=== PATIENT | female | born 1960 | race Caucasian/White ===

== ENCOUNTER → 2018-03-19 08:41 | Outpatient (CLI) | payer OTHER, SELFPAY ==
--- NOTE | 2018-03-19 08:43 | US_ITS ---
STUDY: ABDOMINAL ULTRASOUND - RIGHT UPPER QUADRANT REASON FOR VISIT: Female, 57 years old. Gallbladder polyp TECHNIQUE: Ultrasound evaluation of the right upper quadrant was performed with real-time and static gomez-scale imaging. TECHNICAL QUALITY: Adequate. COMPARISON: 01/22/16. FINDINGS: Liver: The liver measures 13.7 cm. There is normal echogenicity of the liver. The bile ducts are within normal limits. There is hepatic color flow. The direction of portal flow is hepatopetal. There is no demonstrated mass lesion. Gallbladder: Normal distended gallbladder. The gallbladder wall measures 2.4 mm. There is a negative sonographic Greenwood's sign. There is no pericholecystic fluid. There are no gallstones. Stable 3 mm gallbladder polyp. Common Bile Duct (C.B.D.): The common bile duct measures 3.4 mm. Pancreas: Normal size of the head, body and tail of the pancreas. There is normal echogenicity of the pancreas. There is no demonstrated pancreatic mass or cyst. Right Kidney: Normal size of the right kidney. The right kidney measures 10.2 cm. Normal renal cortex. The right cortex measures 1.3 cm. There is no demonstrated renal mass or cyst. There is no right hydronephrosis. US/Abdomen Limited IMPRESSION: Stable gallbladder polyp. Otherwise negative. Electronically Signed: Papi Engle MD at 13:08 EDT , Service support ,
== END ==
PROVIDERS: Family Provider Family Medicine; PCP Family Medicine; Visit Provider Internal Medicine Gastroenterology
DX: K82.4 Cholesterolosis of gallbladder (principal)
CPT/HCPCS: 76705

== ENCOUNTER → 2018-04-06 12:31 | Outpatient (CLI) | payer OTHER, SELFPAY ==
--- NOTE | 2018-04-06 12:34 | BI_ITS ---
MAMMOGRAPHY - BILATERAL SCREENING REASON FOR EXAM: Female, 57 years old. Routine annual screening examination. PERTINENT HISTORY: Grandmother with breast cancer. TECHNIQUE: Digital bilateral breast marci (3D mammographic acquisition) in the CC and MLO projections. 2-D mediolateral oblique (MLO) and craniocaudad (CC) views of both breasts were obtained. CAD: Full Field Digital Mammography with Computer Added Detection was performed. COMPARISON: Comparison is made with prior outside examination dated February 05, 2017. FINDINGS: Breast Composition: There are scattered areas of fibroglandular density. There are no dominant masses or suspicious calcifications. No other significant abnormalities are identified. There has been no significant change since the prior study. BI/SCREENING MAMM (CAD), BILAT IMPRESSION: Stable bilateral screening mammogram. Yearly follow-up mammogram recommended. (A) ASSESSMENT CATEGORY: BIRADS Category 1: Negative. A letter regarding these results will be sent to the patient by the facility within 30 days. Approximately 10% of breast cancers are not detected by mammography. A normal mammogram should not delay biopsy of a clinically suspicious abnormality. [id number] Electronically Signed: Blake Garcia MD at 13:33 EDT Tel [phone], Service support ,
== END ==
PROVIDERS: Family Provider Family Medicine; PCP Family Medicine; Visit Provider Nurse Practitioner Women's Health
DX: Z12.31 Encounter for screening mammogram for malignant neoplasm of breast (principal)
CPT/HCPCS: 77063; 77067

== ENCOUNTER → 2019-05-03 | Outpatient (CLI) | payer OTHER, SELFPAY ==
--- NOTE | 2019-05-03 08:05 | US_ITS ---
STUDY: ABDOMINAL ULTRASOUND - RIGHT UPPER QUADRANT REASON FOR VISIT: Female, 59 years old. History of gallbladder polyp. TECHNIQUE: Ultrasound evaluation of the right upper quadrant was performed with real-time and static gomez-scale imaging. TECHNICAL QUALITY: Adequate. COMPARISON: Comparison is made with prior ultrasound dated March 19, 2018. FINDINGS: Liver: The liver measures 13.7 cm. There is normal echogenicity of the liver. The bile ducts are within normal limits. There is hepatic color flow. The direction of portal flow is hepatopetal. There is no demonstrated mass lesion. Gallbladder: Normal distended gallbladder. The gallbladder wall measures 2.6 mm. There is a negative sonographic Greenwood's sign. There is no pericholecystic fluid. There are no gallstones. There is a stable 3 mm x 3 mm gallbladder polyp. Common Bile Duct (C.B.D.): The common bile duct measures 3.0 mm. Pancreas: Normal size of the head, body and tail of the pancreas. There is normal echogenicity of the pancreas. There is no demonstrated pancreatic mass or cyst. Right Kidney: Normal size of the right kidney. The right kidney measures 10.6 cm x 4.7 cm x 5.2 cm. Normal renal cortex. The right cortex measures 1.1 cm. There is no demonstrated renal mass or cyst. There is no right hydronephrosis. US/Abdomen Limited IMPRESSION: Stable 3 mm gallbladder polyp. Electronically Signed: Blake Garcia, at 9:39 EDT , Service support ,
== END | disposition home or self-care (01) ==
LOC: US 08:03
PROVIDERS: Family Provider Family Medicine; PCP Family Medicine; Referring Provider Internal Medicine Gastroenterology; Visit Provider Internal Medicine Gastroenterology
DX: K82.4 Cholesterolosis of gallbladder (principal)
CPT/HCPCS: 76705

== ENCOUNTER → 2019-09-27 14:21 | Outpatient (CLI) | payer OTHER, SELFPAY ==
[2018-03-18 13:54] VITALS: BMI 24.1
--- NOTE | 2019-09-27 14:22 | BI_ITS ---
MAMMOGRAPHY - BILATERAL SCREENING 3-D TOMOSYNTHESIS REASON FOR EXAM: Female, 59 years old. FAM HX OF TYRA DEL REAL AGE LATE 70''S PT TAKING PREMARIN CREAM X2-3 WKS -- NO PREV SX PERTINENT HISTORY: Positive family history as described above. TECHNIQUE: 2-D mammograms and 3-D Tomosynthesis of the breast (s) were performed. CAD was performed. COMPARISON: 04/06/2018, 02/05/2017, 09/12/2015 FINDINGS: The breast composition is composed of scattered fibroglandular density. Scattered benign calcifications are seen. No dense spiculated masses or suspicious microcalcifications are identified. No architectural distortion is identified. There is no skin thickening or retraction. There has been no significant change since the prior study. BI/SCREEN MAMM (CAD) W/DUARTE BILAT IMPRESSION: No mammographic signs of malignancy. Routine yearly mammograms recommended. ASSESSMENT CATEGORY: BIRADS Category 1: Negative. A letter regarding these results will be sent to the patient by the facility within 30 days. FOLLOW UP RECOMMENDATION: Yearly follow up mammogram recommended. (A) Approximately 10% of breast cancers are not detected by mammography. A normal mammogram should not delay biopsy of a clinically suspicious abnormality. Electronically Signed: Felipe Fernandez MD at 14:32 EST Tel [phone], Service support ,
== END ==
PROVIDERS: Family Provider Family Medicine; PCP Family Medicine; Referring Provider Obstetrics & Gynecology; Visit Provider Obstetrics & Gynecology
DX: Z12.31 Encounter for screening mammogram for malignant neoplasm of breast (principal)
CPT/HCPCS: 77063; 77067

== ENCOUNTER → 2020-12-12 11:01 | Outpatient (CLI) | payer SELFPAY ==
[2019-09-27 15:22] VITALS: BMI 24.1
== END ==
PROVIDERS: PCP Family Medicine; Visit Provider Family Medicine
DX: Z20.828 Contact with and (suspected) exposure to other viral communicable diseases (principal)
CPT/HCPCS: 87635; U0005; U0003

== ENCOUNTER → 2021-01-15 13:28 | Outpatient (CLI) | payer SELFPAY ==
[2019-09-27 15:22] VITALS: BMI 24.1
[2021-01-15 12:59] VITALS: BMI 22.9
--- NOTE | 2021-01-15 13:42 | BI_ITS ---
MAMMOGRAPHY - BILATERAL SCREENING REASON FOR EXAM: Female, 60 years old. Routine annual screening examination. PERTINENT HISTORY: Grandmother with breast cancer. TECHNIQUE: Digital bilateral breast duarte (3D mammographic acquisition) in the CC and MLO projections. 2-D mediolateral oblique (MLO) and craniocaudad (CC) views of both breasts were obtained. CAD: Full Field Digital Mammography with Computer Added Detection was performed. COMPARISON: Comparison is made with prior study dated 09/27/2019 and 04/06/2018. FINDINGS: Breast Composition: There are scattered areas of fibroglandular density. There are no dominant masses or suspicious calcifications. No other significant abnormalities are identified. There has been no significant change since the prior study. BI/SCRN MAMM (CAD)W/DUARTE BILAT IMPRESSION: Stable bilateral screening mammogram. Yearly follow-up mammogram recommended. (A) ASSESSMENT CATEGORY: BIRADS Category 1: Negative. A letter regarding these results will be sent to the patient by the facility within 30 days. Approximately 10% of breast cancers are not detected by mammography. A normal mammogram should not delay biopsy of a clinically suspicious abnormality. [id number] Electronically Signed: Blake Garcia MD at 15:10 EDT , Service support ,
== END ==
PROVIDERS: PCP Family Medicine; Referring Provider Nurse Practitioner Women's Health; Visit Provider Nurse Practitioner Women's Health
DX: Z12.31 Encounter for screening mammogram for malignant neoplasm of breast (principal)
CPT/HCPCS: 77063; 77067

== ENCOUNTER 2021-02-25 04:23 | Emergency (ER) | payer SELFPAY ==
[2021-02-16 10:18] VITALS: BMI 23.0
[2021-02-25 04:26] VITALS: BP 142/75; PULSE 106; RESP 18; TEMP 36.6; O2SAT 97; BMI 22.7
[2021-02-25 04:29] VITALS: BP 142/75; PULSE 106; RESP 18; TEMP 36.6; O2SAT 97
--- NOTE | 2021-02-25 04:32 | EKG12_ITS ---
Test Reason : GENERAL Blood Pressure : / mmHG Vent. Rate : 087 BPM Atrial Rate : 087 BPM P-R Int : 122 ms QRS Dur : 092 ms QT Int : 334 ms P-R-T Axes : 048 -09 060 degrees QTc Int : 401 ms Normal sinus rhythm Normal ECG Confirmed by SANTHOSH PETIT, ANIKET ([id number]), non linear editor ERICK ALVARADO ([id number]) on 02/27/2021 9:09:18 AM Referred By: KYLAH Confirmed By:ANIKET TREVIZO MD
--- NOTE | 2021-02-25 04:32 | RAD_ITS ---
STUDY: X-RAY CHEST REASON FOR EXAM: Female, 60 years old. Cough TECHNIQUE: Single AP portable view of the chest. COMPARISON: None. FINDINGS: The lungs are clear and expanded. There is no demonstrated pleural abnormality. Normal size heart. Normal mediastinum and heriberto. Normal visualized pulmonary arteries. Normal visualized aortic arch and descending thoracic aorta. There are diffuse degenerative changes of the visualized thoracic spine. Normal visualized ribs, clavicles, and shoulders. There is no demonstrated abnormality of the visualized soft tissue structures of the upper abdomen. RAD/Chest 1 View (Portable) IMPRESSION: Degenerative changes, as described above. No demonstrated acute cardiopulmonary process. Electronically Signed: Kristen Rain MD at 4:59 EDT Tel , Service support ,
--- NOTE | 2021-02-25 04:43 | EX.ED.DYSGE1 ---
HPI History of Present Illness Chief Complaint: General Illness Narrative Narrative: 60-year-old female presenting with feeling unwell. She states that she has COVID-19. She is on day 11. She still has some low-grade fevers at times. She feels as though she might have some shortness of breath but is unsure. She denies chest pain. She states that she was checking her pulse ox at home and it dropped to 89 once and has been normal before and since that time. She is currently on azithromycin, prednisone and albuterol at home. PFSH PFS Medical History COVID-19 URI (upper respiratory infection) Home Medications estradiol 1 g VAGINAL 2XW #42.5 gm 01/04/21 [Rx Last Taken Unknown] albuterol sulfate 2 puff INHALATION Q4H PRN PRN 02/25/21 [History Last Taken Unknown] azithromycin 1 mg PO DAILY 02/25/21 [History Last Taken Unknown] prednisone 40 mg PO DAILY 02/25/21 [History Last Taken Unknown] Allergy/AdvReac Type Severity Reaction Status Date / Time meperidine HCl [From Demerol] Allergy Nausea Verified 02/25/21 04:24 Sulfa (Sulfonamide Allergy Rash Verified 02/25/21 04:24 Antibiotics) Family History Grandmother Diabetes Mother Osteoporosis Surgical History cyst removal from wrist H/O tubal ligation History of hernia surgery History of tonsillectomy History of total vaginal hysterectomy (TVH) Social History Smoking Status: Never smoker alcohol intake: never substance use type: does not use caffeine: Yes what type of physical activity do you participate in: walking frequency: 5-6 times per week seatbelt use: always do you feel safe at home: Yes additional social history: [facility] ED Constitutional Constitutional ED: Reports fever(s); Denies chills or sweats Eyes Eyes: Denies blurry vision or change in vision ENT ENT ED: Denies ear pain, rhinorrhea or sore throat Cardiovascular Cardiovascular: Denies chest pain, palpitations or racing heartbeat Respiratory/Chest Respiratory/Chest: Reports dyspnea; Denies cough or sputum Gastrointestinal Gastrointestinal: Denies abdominal pain, constipation, diarrhea or vomiting Genitourinary Genitourinary ED: Denies dysuria, hematuria or urinary frequency Musculoskeletal Musculoskeletal: Denies arthralgias, myalgias or neck pain Integumentary Denies abscess, Abrasions or rash Neurologic Neurologic: Denies headache(s), paresthesias or weakness Psychiatric Psychiatric: Denies anxiety, depression, suicidal ideation or suicidal thoughts Endocrine Endocrinology: Denies polydipsia or polyuria EXAM Physical Exam Const Vital Signs: 02/25/21 04:26 02/25/21 04:29 Temperature 97.8 F 97.8 F Temperature Source Temporal Temporal Pulse Rate 106 H 106 H Respiratory Rate 18 18 Respiratory Effort Normal Respiratory Pattern Normal Blood Pressure 142/75 H 142/75 H Blood Pressure Mean 97 97 Pulse Ox 97 97 Positive well nourished and well developed General Appearance ED: well developed; Negative for pallor HEENT Reports normocephalic, head/scalp atraumatic and moist mucous membranes Negative for trauma Eyes PERRL and EOMs intact bilaterally Resp normal respiratory effort Resp Narrative: Bibasilar crackles. Auscultation: Negative for rales, rhonchi or wheezes Cardio regular rate and regular rhythm GI normal to inspection, nondistended, normoactive bowel sounds and non-distended Auscultation: normoactive bowel sounds Palpation: soft Narrative: Deferred Extremity normal to inspection General Extremety ED: Yes edema and tenderness General Extremity: edema Neuro oriented x3 and CN's II-XII intact bilaterally Sensorium / Orientation: alert Motor Exam: strength 5/5 throughout Psych mental status grossly normal Attitude: No agitated Mood & Affect: anxious Skin no rashes or lesions noted and no wounds General Skin Exam: Negative for jaundice or pallor MDM MDM MDM Narrative Medical decision making narrative: Patient presenting with one episode of reported pulse ox being 89. She feels generally unwell. She does not have significant shortness of breath. She is not tachypneic or hypoxic here. She is afebrile. Patient is currently day 11 with COVID-19. She is on steroids, azithromycin, albuterol at home. Lab work-up today shows that she has a white blood cell count of 6.0, hemoglobin 13.5 hematocrit 39.7, platelets 250. She is lymphopenic. Renal function and electrolytes are normal. LFTs are normal. Troponin is negative. Lactic acid 1.0. Procalcitonin 0.09 EKG interpreted by myself is sinus rhythm at 87 bpm without signs of ischemic changes. Chest x-ray is interpreted by myself shows no acute cardiopulmonary process and the radiologist does agree. Patient has a D-dimer of 0.53 age-adjusted this is within normal limits. Patient does not require CTA. Patient has maintained a normal respiratory rate and pulse ox since she has been here. I feel she is safe to be discharged home. Impression: 1. Dyspnea 2. History of COVID-19 Lab Data Labs: Laboratory Results - last 24 hr 02/25/21 02/25/21 02/25/21 04:44 04:44 04:44 WBC 6.0 RBC 4.49 Hgb 13.5 Hct 39.7 MCV 88.4 MCH 30.1 MCHC 34.0 RDW Std Deviation 41.1 RDW Coeff of Wanda 12.6 Plt Count 250 MPV 9.0 Immature Gran % (Auto) 0.500 Neut % (Auto) 85.4 H Lymph % (Auto) 10.[address] [place] % (Auto) 3.5 Eos % (Auto) 0.0 Baso % (Auto) 0.0 Absolute Neuts (auto) 5.2 Absolute Lymphs (auto) 0.64 L Nucleated RBC % 0 D-Dimer Quant (PE/DVT) Sodium 133 L Potassium 3.8 Chloride 97 L Carbon Dioxide 29.0 Anion Gap 7 BUN 7 Creatinine 0.60 Estim Creat Clear Calc 84.54 Est GFR (MDRD) Af Amer 131 Est GFR (MDRD) Non-Af 108 BUN/Creatinine Ratio 11.6 Glucose 107 H Lactic Acid Calcium 8.6 Total Bilirubin 0.50 AST 34 ALT 35 Alkaline Phosphatase 64 Troponin I < 0.015 Total Protein 6.6 Albumin 3.4 Globulin 3.2 Albumin/Globulin Ratio 1.1 Procalcitonin 0.09 02/25/21 02/25/21 04:45 04:58 WBC RBC Hgb Hct MCV MCH MCHC RDW Std Deviation RDW Coeff of Wanda Plt Count MPV Immature Gran % (Auto) Neut % (Auto) Lymph % (Auto) [place] % (Auto) Eos % (Auto) Baso % (Auto) Absolute Neuts (auto) Absolute Lymphs (auto) Nucleated RBC % D-Dimer Quant (PE/DVT) 0.53 H* Sodium Potassium Chloride Carbon Dioxide Anion Gap BUN Creatinine Estim Creat Clear Calc Est GFR (MDRD) Af Amer Est GFR (MDRD) Non-Af BUN/Creatinine Ratio Glucose Lactic Acid 1.0 Calcium Total Bilirubin AST ALT Alkaline Phosphatase Troponin I Total Protein Albumin Globulin Albumin/Globulin Ratio Procalcitonin Radiography Diagnostic Testing: Radiology Impression Chest X-Ray 02/25/21 04:32 IMPRESSION: Degenerative changes, as described above. No demonstrated acute cardiopulmonary process. Electronically Signed: Kristen Rain MD at 4:59 EDT Tel , Service support , Discharge Plan Triage Chief Complaint: General Illness ED Provider: Zohaib Krishna Dx/Rx/DC Orders Instructions: Coronavirus Disease 2019 (COVID-19): Caring for Yourself or Others Prescriptions: No Action azithromycin 250 mg Tablet 1 mg PO DAILY RF: 0 prednisone 20 mg Tablet 40 mg PO DAILY RF: 0 albuterol sulfate 90 mcg/actuation HFA aerosol inhaler 2 puff INHALATION Q4H PRN PRN (Reason: Shortness Of Breath Or Wheezing) RF: 0 estradiol 0.01 % (0.1 mg/gram) cream 1 g VAGINAL 2XW Qty: 42.5 RF: 1 Primary Care Provider: Kandace Anderson Referrals: Kandace Anderson DO [Primary Care Provider] - Disposition Disposition: Home, self care
[2021-02-25 04:51] LABS: Absolute Lymphocyte Count 0.64 X10^3/uL (0.83-4.51); Absolute Neutrophil Count 5.2 X10^3/uL (2.0-7.7); Hematocrit 39.7 % (37-47); Hemoglobin 13.5 g/dL (12.0-15.0); Lymphocyte # 0.64 X10^3/ul (0.83-4.51); Lymphocyte % 10.6 % (19-41); Mean Corpuscular Hgb 30.1 pg (27.0-32.0); Mean Corpuscular Volume 88.4 fL (81-99); Monocyte# 0.21 X10^3/uL; Monocyte% 3.5 % (0-10); NRBC Flagged by Analyzer 0 % (0-5); Neutrophil # 5.16 X10^3/uL (2.7-7.7); Neutrophil % 85.4 % (47-70); Platelet Count 250 K/mm3 (150-450); RBC Distribution Width CV 12.6 % (11.6-14.6); RBC Distribution Width SD 41.1 fl (35.1-43.9); Red Blood Count 4.49 M/mm3 (4.2-5.4)
[2021-02-25 05:11] LABS: ALB/GLOB Ratio 1.1 RATIO (0.9-2.4); AST(SGOT) 34 U/L (15-37); Alanine Aminotransfer ALT/SGPT 35 U/L (13-56); Albumin, Serum 3.4 g/dL (3.2-5.0); Alkaline Phosphatase 64 U/L (45-117); Anion Gap 7 (5-15); BUN 7 mg/dL (7-18); BUN/Creat Ratio 11.6 RATIO (10-20); Calcium,Total 8.6 mg/dL (8.5-10.1); Chloride 97 mmol/L (98-107); EST Glomerular Filtration Rate 108 mL/min (>60); Est Glom Filt Rate - Afr Amer 131 mL/min (>60); Estimated Creatinine Clearance 84.54 ml/min; Globulin 3.2 g/dL (2.2-4.2); Glucose 107 mg/dL (74-106); Potassium 3.8 mmol/L (3.5-5.1); Protein, Total 6.6 g/dL (6.4-8.2); Sodium Level 133 mmol/L (136-145)
[2021-02-25 05:16] LABS: Procalcitonin 0.09 ng/mL (0.00-0.09)
[2021-02-25 05:46] LABS: D-Dimer Quantitative (DVT/PE) 0.53 FEU/ug/m (0.27-0.49)
[2021-02-25 06:02] VITALS: O2SAT 98
[2021-02-25 06:03] VITALS: BP 140/75; PULSE 86; RESP 16; O2SAT 99
== END 2021-02-25 06:03 | disposition home or self-care (01) ==
PROVIDERS: Emergency Provider Student in an Organized Health Care Education/Training Program; PCP Family Medicine
DX: U07.1 COVID-19 (principal); R06.00 Dyspnea, unspecified; Z79.52 Long term (current) use of systemic steroids
CPT/HCPCS: 71045; 80053; 83605; 84145; 84484; 85025; 85379; 93005; 99283; J7030; A4216

== ENCOUNTER → 2021-07-18 07:30 | Outpatient (CLI) | payer SELFPAY ==
--- NOTE | 2021-07-18 07:32 | US_ITS ---
STUDY: ABDOMINAL ULTRASOUND - RIGHT UPPER QUADRANT REASON FOR VISIT: Female, 61 years old H/O GB POLYP AND IBS TECHNIQUE: Ultrasound evaluation of the right upper quadrant was performed with real-time and static gomez-scale imaging. TECHNICAL QUALITY: Adequate. COMPARISON: Comparison is made with prior examination dated 05/03/2019. FINDINGS: Liver: The liver measures 11.6 cm. There is normal echogenicity of the liver. The bile ducts are within normal limits. There is hepatic color flow. The direction of portal flow is hepatopetal. There is no demonstrated mass lesion. Gallbladder: Normal distended gallbladder. The gallbladder wall measures 2 mm. There is a negative sonographic Greenwood''s sign. There is no pericholecystic fluid. There are no gallstones. There is evidence of a 3 mm x 4 mm gallbladder polyp. Common Bile Duct (C.B.D.): The common bile duct measures 3 mm. Pancreas: Normal size of the head, body and tail of the pancreas. There is normal echogenicity of the pancreas. There is no demonstrated pancreatic mass or cyst. Right Kidney: Normal size of the right kidney. The right kidney measures 10.3 cm x 4.7 cm x 4.3 cm. Normal renal cortex. The right cortex measures 1.2 cm. There is no demonstrated renal mass or cyst. There is no right hydronephrosis. US/Gallbladder IMPRESSION: 3 mm x 4 mm gallbladder polyp. This is unchanged. Electronically Signed: Blake Garcia MD at 15:21 EDT , Service support ,
== END ==
PROVIDERS: PCP Family Medicine; Referring Provider Internal Medicine Gastroenterology; Visit Provider Internal Medicine Gastroenterology
DX: K30 Functional dyspepsia (principal); K58.9 Irritable bowel syndrome, unspecified; K82.4 Cholesterolosis of gallbladder; Z86.010 Personal history of colon polyps
CPT/HCPCS: 76705

== ENCOUNTER 2022-01-24 13:08 | Outpatient (CLI) | payer SELFPAY ==
--- NOTE | 2022-01-24 13:13 | BI_ITS ---
MAMMOGRAPHY - BILATERAL SCREENING 3-D TOMOSYNTHESIS REASON FOR EXAM: Female, 61 years old. screening for breast cancer PERTINENT HISTORY: No significant family history. TECHNIQUE: 2-D mammograms and 3-D Tomosynthesis of the breast (s) were performed. CAD was performed. COMPARISON: 01/15/2021 FINDINGS: The breast composition is composed of scattered fibroglandular density. Scattered benign calcifications are seen. No dense spiculated masses or suspicious microcalcifications are identified. No architectural distortion is identified. There is no skin thickening or retraction. There has been no significant change since the prior study. BI/SCRN MAMM (CAD)W/DUARTE BILAT IMPRESSION: No mammographic signs of malignancy. Routine yearly mammograms recommended. ASSESSMENT CATEGORY: BIRADS Category 1: Negative. A letter regarding these results will be sent to the patient by the facility within 30 days. FOLLOW UP RECOMMENDATION: Yearly follow up mammogram recommended. (A) Approximately 10% of breast cancers are not detected by mammography. A normal mammogram should not delay biopsy of a clinically suspicious abnormality. Electronically Signed: Ashvin Crockett MD at 16:29 EDT ,
== END 2022-01-24 23:59 | disposition home or self-care (01) ==
PROVIDERS: PCP Family Medicine; Visit Provider Obstetrics & Gynecology
DX: Z12.31 Encounter for screening mammogram for malignant neoplasm of breast (principal)
CPT/HCPCS: 77063; 77067

== ENCOUNTER → 2022-09-14 | Outpatient (CLI) | payer SELFPAY ==
--- NOTE | 2022-09-14 10:54 | US_ITS ---
EXAM: US ABDOMEN LIMITED, RIGHT UPPER QUADRANT CLINICAL INDICATION: GALLBLADDER POLYP TECHNIQUE: Real-time ultrasound of the right upper quadrant with image documentation. This report was created using [employer] report generation technology. COMPARISON: US Abdomen Limited RUQ dated 07/18/2021 FINDINGS: LIVER: Normal. There is normal echotexture. No focal hepatic lesion. No intrahepatic biliary ductal dilation. GALLBLADDER: Previous studies suspected gallbladder polyp is not identified on this exam. No gallbladder wall thickening is demonstrated. No pericholecystic fluid. Negative sonographic Greenwood''s sign. COMMON BILE DUCT: Unremarkable as visualized. The proximal common bile duct is within normal limits for the patient''s age. PANCREAS: Unremarkable as visualized. No focal abnormality is demonstrated in the pancreas. No pancreatic ductal dilatation. RIGHT KIDNEY: Normal. There is no hydronephrosis. No shadowing calculus. No focal lesion or perinephric collection is demonstrated. US/Abdomen Limited IMPRESSION: Normal right upper quadrant ultrasound. No evidence of gallbladder polyp or stone. Electronically Signed: Mahamed Flood MD at 12:16 EST ,
== END | disposition home or self-care (01) ==
LOC: US 10:49
PROVIDERS: PCP Family Medicine
DX: K82.4 Cholesterolosis of gallbladder (principal)
CPT/HCPCS: 76705

== ENCOUNTER → 2023-02-20 | Outpatient (CLI) | payer SELFPAY ==
--- NOTE | 2023-02-20 12:58 | BI_ITS ---
MAMMOGRAPHY - BILATERAL SCREENING REASON FOR EXAM: Female, 62 years old. Routine annual screening examination. PERTINENT HISTORY: Grandmother with breast cancer. TECHNIQUE: Digital bilateral breast duarte (3D mammographic acquisition) in the CC and MLO projections. 2-D mediolateral oblique (MLO) and craniocaudad (CC) views of both breasts were obtained. CAD: Full Field Digital Mammography with Computer Added Detection was performed. COMPARISON: Comparison is made with prior examination of January 24, 2022 and January 15, 2021. FINDINGS: Breast Composition: There are scattered areas of fibroglandular density. There are no dominant masses or suspicious calcifications. No other significant abnormalities are identified. There has been no significant change since the prior study. BI/SCRN MAMM (CAD)W/DUARTE BILAT IMPRESSION: Stable bilateral screening mammogram. Yearly follow-up mammogram recommended. (A) ASSESSMENT CATEGORY: BIRADS Category 1: Negative. A letter regarding these results will be sent to the patient by the facility within 30 days. Approximately 10% of breast cancers are not detected by mammography. A normal mammogram should not delay biopsy of a clinically suspicious abnormality. [id number] Electronically Signed: Blake Garcia MD at 14:28 EDT ,
== END | disposition home or self-care (01) ==
PROVIDERS: PCP Family Medicine; Referring Provider Obstetrics & Gynecology; Visit Provider Obstetrics & Gynecology
DX: Z12.31 Encounter for screening mammogram for malignant neoplasm of breast (principal)
CPT/HCPCS: 77063; 77067

== ENCOUNTER → 2024-04-12 | Outpatient (CLI) | payer SELFPAY ==
--- NOTE | 2024-04-12 09:07 | BI_ITS ---
MAMMOGRAPHY - BILATERAL SCREENING REASON FOR EXAM: Female, 63 years old. Routine annual screening examination. PERTINENT HISTORY: Grandmother with breast cancer. TECHNIQUE: Digital bilateral breast duarte (3D mammographic acquisition) in the CC and MLO projections. 2-D mediolateral oblique (MLO) and craniocaudad (CC) views of both breasts were obtained. CAD: Full Field Digital Mammography with Computer Added Detection was performed. COMPARISON: Comparison is made with prior study dated February 20, 2023 and January 24, 2022. FINDINGS: Breast Composition: There are scattered areas of fibroglandular density. There are no dominant masses or suspicious calcifications. No other significant abnormalities are identified. There has been no significant change since the prior study. BI/SCRN MAMM (CAD)W/DUARTE BILAT IMPRESSION: Stable bilateral screening mammogram. Yearly follow-up mammogram recommended. (A) ASSESSMENT CATEGORY: BIRADS Category 1: Negative. A letter regarding these results will be sent to the patient by the facility within 30 days. Approximately 10% of breast cancers are not detected by mammography. A normal mammogram should not delay biopsy of a clinically suspicious abnormality. [id number] Electronically Signed: Blake Garcia MD at 10:08 EDT ,
== END | disposition home or self-care (01) ==
PROVIDERS: PCP Family Medicine; Referring Provider Obstetrics & Gynecology; Visit Provider Obstetrics & Gynecology
DX: Z12.31 Encounter for screening mammogram for malignant neoplasm of breast (principal)
CPT/HCPCS: 77063; 77067

== ENCOUNTER → 2025-04-18 | Outpatient (CLI) | payer SELFPAY ==
--- NOTE | 2025-04-18 13:00 | BI_ITS ---
EXAM: SCRN MAMM (CAD)W/DUARTE BILAT DATE: 04/18/2025 CLINICAL HISTORY: F, Age 64 y/o , SCREEN FOR BREAST CANCER TECHNIQUE: SCRN MAMM (CAD)W/DUARTE BILAT COMPARISON: Prior exam(s) dated April 12, 2024.. FINDINGS: TISSUE DENSITY: There are scattered areas of fibroglandular density. Bilateral Breast Mammographic Findings: No significant masses, calcifications or other abnormalities are identified. No suspicious masses, areas of developing architectural distortion, or suspicious calcifications. There has been no significant interval change. BI/SCRN MAMM (CAD)W/DUARTE BILAT IMPRESSION: Stable examination. OVERALL FINAL ASSESSMENT BI-RADS 1: NEGATIVE. RECOMMENDATION: Routine annual follow-up in 1 Year A letter with findings and recommendations will be mailed to the patient. Reading Location: [place] [id number]
--- OUTSIDE RECORDS SUMMARY | 2025-04-18 22:08 | XMS RPT_ITS | CCD ---
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 Apolonia Anderson Primary Care Provider Dr. Apolonia Anderson Referring Provider [phone] Doctor[facility] [place] Attending Provider Dr. Mirella Piedra Attending Provider Dr. Apolonia Anderson DO Primary Care Provider Dr. Mirella Piedra DO Attending Provider Dr. Mirella Piedra DO Referring Provider Dr. Apolonia Anderson DO Referring Provider Mirella Piedra Attending Apolonia Vance Referring Unavailable Apolonia Anderson Primary Care Unavailable Mirella Piedra Attending Mirella Knowles Referring UnavailApolonia Hopkins Primary Care Unavailable Allergies Allergy Classification Reported Allergen(s) Allergy Type Date of Onset Reaction(s) Facility (2 sources) meperidine Drug Allergy 08-11-20 17 nausea and vomiting [facility] Work Phone: (2 sources) sulfamethoxazole / trimethoprim Drug Allergy 08-11-20 17 Sulfa drugs: whole body rash [facility] Work Phone: (4 sources) Meperidine; Translations: [meperidine HCl] Drug Allergy 01-25-20 22 Nausea [facility] (4 sources) Sulfonamides (Antibiotic); Translations: [Sulfa (Sulfonamide Antibiotics)] Allergy to substance 01-25-20 22 Rash [facility] Medications Current Medications Medication Drug Class(es) Dates Sig (Normalized) Sig (Original) estradiol 0.1 mg/ml vaginal cream (8 sources) Estrogen Start: 02-20-2023 End: 06-11-2024 Estradiol 0.01 % (0.1 mg/gram) cream Active 1 NMA VAGINAL DAILY 42.5 3 June 11, 2024 1:51pm for 14 days Start: 09-27-2019 End: 01-24-2022 Estradiol 0.01 % (0.1 mg/gra m) cream Discontinued 1 g VAGINAL TWICE A WEEK 42.5 1 January 04, 2021 11:40am January 24, 2022 1:57pm Multivitamin tablet (1 source) Start: 02-20-2023 Multivitamin t ablet Active 1 {tbl} PO DAILY February 20, 2023 12:00am plexus (3 sources) Start: 01-24-2022 plexus Active PO January 24, 2022 1:57pm Start: 01-24-2022 End: 02-20-2023 plexus Discontinued PO 0 Apr 2021 12:00am February 20, 2023 1:25pm Start: 01-24-2022 plexus Active PO January 23, 2022 11:00pm Semaglutide 0.5 mg/0.1 mL syringe (1 source) Start: 04-18-2025 Semaglutide 0. 5 mg/0.1 mL syringe Active mg SC .q1week April 18, 2025 12:00am Completed/Discontinued Medications Medication Drug Class(es) Dates Sig (Normalized) Sig (Original) [id number] 200 actuat albuterol 0.09 mg/actuat metered dose inhaler (3 sources) beta2-Adrenergic Agonist Start: 02-25-2021 End: 01-24-2022 Albuterol Sulfate 90 mcg/actuation HFA aerosol inhaler Discontinued 2 NMA INHALATION EVERY 4 HOURS NEEDED as needed for Shortness Of Breath Or Wheezing February 25, 2021 12:00am January 24, 2022 1:57pm Start: 02-25-2021 End: 01-24-2022 take 1 puff(s) by inhalation every four hours as needed Albuterol Sulfate Discontinued 2 PUFF INHALATION EVERY 4 HOURS NEEDED February 25, 2021 4:24am January 24, 2022 1:57pm aspirin 81 mg delayed release oral tablet (3 sources) Platelet Aggregation Inhibitor, Nonsteroidal Anti-inflammatory Drug Start: 01-24-2022 End: 02-20-2023 take 1 tablet by mouth once daily Aspirin 81 mg tablet,delayed release (DR/EC) Discontinued 81 mg PO DAILY January 24, 2022 12:00am February 20, 2023 1:25pm azithromycin 250 mg oral tablet (3 sources) Macrolide Antimicrobial Start: 02-25-2021 End: 01-24-2022 take 1 mg by mouth once daily Azithromycin 250 mg Tablet Discontinued 1 mg PO DAILY February 25, 2021 12:00am January 24, 2022 1:57pm Start: 02-25-2021 End: 01-24-2022 take 1 mg by mouth once daily Azithromycin Discontinue d 1 MG PO DAILY February 25, 2021 4:24am January 24, 2022 1:57pm calcium carbonate 1500 mg / cholecalciferol 800 unt oral tablet (3 sources) Vitamin D Start: 05-08-2015 End: 03-18-2018 Calcium Carbonate-Vitamin D3 1 EACH tablet Discontinued 1 NMA PO DAILY May 08, 2015 12:00am March 18, 2018 1:54pm Start: 05-08-2015 End: 03-18-2018 Calcium Carbonate-Vitamin D3 Discontinued 1 EACH PO DAILY May 08, 2015 8:53am March 18, 2018 1:54pm calcium polycarbophil 625 mg oral tablet (3 sources) Start: 05-08-2015 End: 03-18-2018 take 1 tablet by mouth once daily Calcium Polycarbophil 625 MG tablet Discontinued 625 mg PO DAILY May 08, 2015 12:00am March 18, 2018 1:54pm cholecalciferol 0.05 mg oral capsule (3 sources) Vitamin D Start: 01-24-2022 End: 02-20-2023 take 1 capsule by mouth once daily Cholecalciferol (Vitamin D3) 50 mcg (2,000 unit) capsule Discontinued 50 ug PO DAILY January 24, 2022 12:00am February 20, 2023 1:25pm diphenhydrAMINE hydrochloride 25 mg oral capsule (3 sources) Histamine-1 Receptor Antagonist Start: 05-08-2015 End: 03-18-2018 take 1 capsule by mouth at bedtime Diphenhydramine Hcl 25 MG capsule Discontinued 25 mg PO AT BEDTIME May 08, 2015 12:00am March 18, 2018 1:55pm estrogens, conjugated (snf) 0.625 mg/ml vaginal cream (3 sources) Estrogen Start: 03-18-2018 End: 09-27-2019 Conjugated Estrogens (Premarin) 0.625 mg/gram cream Discontinued 0 .ROUTE .COMPLEX 30 2 March 18, 2018 12:00am September 27, 2019 4:20pm use small amount at vaginal opening 2 nights per week ibuprofen (2 sources) Nonsteroidal Anti-inflammatory Drug Start: 08-11-2017 IBUPROFEN CAPS as directed IBUPROFEN CAPS [id number] Bart KEARNS L.Acidoph, Paracasei,B. Lactis (2 sources) Start: 05-08-2015 End: 03-18-2018 L.Acidoph, Paracasei,B. Lactis Discontinued 1 EACH PO DAILY May 08, 2015 8:53am March 18, 2018 1:55pm Start: 05-08-2015 End: 03-18-2018 L.Acidoph, Paracasei,B. Lact is Discontinued 1 EACH PO DAILY May 07, 2015 11:00pm March 18, 2018 12:55pm L.Acidoph,Paracasei,B.Animal is 1 EACH capsule (1 source) Start: 05-08-2015 End: 03-18-2018 take 1 capsule by mouth once daily L.Acidoph,Paracasei,B.Animalis 1 EACH capsule Discontinued 1 NMA PO DAILY May 08, 2015 12:00am March 18, 2018 1:55pm [place]-3 Fatty Acids-Fish Oil (2 sources) Start: 05-08-2015 End: 03-18-2018 [place]-3 Fatty Acids-Fish Oil Discontinued 1 EACH PO DAILY May 08, 2015 8:53am March 18, 2018 1:55pm Start: 05-08-2015 End: 03-18-2018 [place]-3 Fatty Acids-Fish Oil Discontinued 1 EACH PO DAILY May 07, 2015 11:00pm March 18, 2018 12:55pm [place]-3 Fatty Acids-Fish Oil 1 EACH capsule,delayed release(DR/EC) (1 source) Start: 05-08-2015 End: 03-18-2018 [place]-3 Fatty Acids-Fish Oil 1 EACH capsule,delayed release(DR/EC) Discontinued 1 NMA PO DAILY May 08, 2015 12:00am March 18, 2018 1:55pm predniSONE 20 mg oral tablet (3 sources) Start: 02-25-2021 End: 01-24-2022 take 2 tablets by mouth once daily Prednisone 20 mg Tablet Discontinued 40 mg PO DAILY February 25, 2021 12:00am January 24, 2022 1:57pm Start: 02-25-2021 End: 01-24-2022 take 40 mg by mouth once daily Prednisone Discontinued 40 MG PO DAILY February 25, 2021 4:24am January 24, 2022 1:57pm traZODone hydrochloride 100 mg oral tablet (3 sources) Serotonin Reuptake Inhibitor Start: 09-27-2019 End: 01-15-2021 Trazodone 100 mg tablet Discontinued 50 mg PO AT BEDTIME as needed for insomnia 04 10September 27, 2019 1:00am January 15, 2021 12:58pm Start: 09-27-2019 End: 01-15-2021 take 50 mg by mouth at bedtime Trazodone Discontinued 50 MG PO AT BEDTIME September 27, 2019 4:46pm January 15, 2021 12:58pm Problems Active Problems Problem Classification Problem Date Documented Da te Episodic/Chronic Anxiety disorders (3 sources) Anxiety; Translations: [Anxiety disorder, unspecified] 09-27-2019 Chronic Comment on above: weight gain on lexap ro, try trazodone low dose, consider buspar. gave counseling information Menopausal disorders (3 sources) Atrophic vaginitis; Translations: [Postmenopausal atrophic vaginitis] 01-15-2021 Chronic Other acquired deformities (3 sources) Lumbar spondylolisthesis; Translations: [Spondylolisthesis , lumbar region] 05-07-2018 Episodic Other gastrointestinal disorders (3 sources) Irritable bowel syndrome; Translations: [Irritable bowel syndrome without diarrhea] 05-07-2018 Chronic Other screening for suspected conditions (not mental disorders or infectious disease) (1 source) Encounter for screening mammogram for malignant neoplasm of breast; Translations: [Encounter for screening mammogram for malignant neoplasm of breast] Onset: 04-18-2025 Episodic Other upper respiratory disease (3 sources) Chronic rhinitis; Translations: [Chronic rhinitis] 05-07-2018 Chronic Other upper respiratory infections (3 sources) Upper respiratory infection; Translations: [Acute upper respiratory infection, unspecified] 02-16-2021 Episodic Viral infection (3 sources) Disease caused by 2019-nCoV; Translations: [COVID-19] 02-16-2021 Episodic Past or Other Problems Problem Classification Problem Date Documented Da te Episodic/Chronic Sprains and strains (2 sources) Strain of unspecified muscle(s) and tendon(s) at lower leg level, unspecified leg, initial encounter; Translations: [Strain of unspecified muscle(s) and tendon(s) at lower leg level, unspecified leg, initial encounter] Onset: 08-11-2017 08-11-2017 Episodic Superficial injury; contusion (2 sources) Contusion of left knee, initial encounter; Translations: [Contusion of left knee, initial encounter] Onset: 08-11-2017 08-11-2017 Episodic Unclassified (2 sources) cyst removal from wrist 04-25-2022 Results Test Name Value Interpretation Reference Range 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: No Is patient in pain?: No Allergies meperidine HCl (From Demerol) Allergy (Verified 04/18/25 14:03) Nausea Sulfa (Sulfonamide Antibiotics) Allergy (Verified 04/18/25 14:03) Rash Medications ???Medication ???Instructions ???Recorded ???Confirmed ???Type multivitamin 1 tab PO DAILY 02/20/23 04/18/25 H istory estradiol 0.01% (0.1 mg/gram) 1 appful vaginal DAILY #42.5 grams 06/11/24 04/18/25 Rx vaginal cream semaglutide 0.5 mg/0.1 mL mg subcut .q1week 04/18/25 5 History subcutaneous syringe Is last menstrual period known: No Post menopausal: Yes Patient : No : No PFSH Medical History COVID-19 URI (upper respiratory infection) Surgical History History of hernia surgery H/O tubal ligation cyst removal from wrist History of total vaginal hysterectomy (TVH) History of tonsillectomy Family History Grandmother Diabetes Mother Osteoporosis Social History Smoking Status: Never smoker alcohol intake: never substance use type: does not use caffeine: No what type of physical activity do you participate in: other details: jazzercise frequency: 5-6 times per week seatbelt use: always do you feel safe at home: Yes additional social history: [facility] History 4 Elective abortions Hx Para 4 Spontaneous abortions Hx # Term Pregnancies Ectopic pregnancies Hx # Pregnancies Multiple births # of living children HPI Encounter for routine gynecological examination Details: GISELA ALMAGUER is a 64 year old who presents for annual exam. son Mynor Almaguer is a psychiatrist and may want to look at working here. Last PAP: Hyst History of abnormal PAP: no Last mammogram: Today History of abnormal mammogram: No Colon cancer screenin - Normal Other preventative health care screenings: PCP- apolonia anderson Female Reproductive History Questions: metorrhagia: No, sexually active: Yes, dyspareunia: No and PCB: No Menopausal Symptoms: No hot flashes, No night sweats, No weight change, No mood changes, No difficulty concentrating, No sleep problems and No change in libido ROS Const Constitutional: Reports as per HPI; Denies fatigue, increased appetite, poor appetite, night sweats, weight gain or weight loss Cardio Card: Denies chest pain Resp Resp: Denies cough or dyspnea GI GI: Reports as per HPI; Denies abdominal pain, bloating, constipation, nausea or vomiting : Reports as per HPI and other; Denies difficulty voiding, dysuria, hematuria, hot flashes, nipple discharge, pelvic pain, prolapse symptoms, urinary frequency, urinary incontinence, urinary urgency, vaginal discharge, vaginal dryness, vaginal odor or vaginal pruritus Skin Skin/Breast: Denies changing lesions, breast mass, breast pain, breast skin changes or nipple discharge Psych Psych: Denies anxiety, change in libido, depression or difficulty concentrating Exam Const General: cooperative, healthy appearing, comfortable, no acute distress, well developed and well groomed [facility] Head: normal to inspection and normocephalic Ears: hearing grossly normal bilaterally and external ears normal Nose: external nose normal Face and sinus: normal facial exam Neck Neck: normal visual inspection, full ROM and no lymphadenopathy Thyroid: thyroid normal Chest Chest palpation inspection: normal inspection of the chest Breast inspection: normal inspection of the breasts and normal inspection of the axillae Breast palpation: normal palpation of the breasts, normal palpation of the axillae and no axillary lymphadenopathy Resp Effort Inspection: normal respiratory effort GI Inspection: normal to inspection and non-distended Palpation: soft, no hepatosplenomegaly and no guarding General: bladder normal to palpation External Female Exam: normal external appearance, normal appearance of the urethra and no lesions Urethra: normal appearance of the urethra and normal palpation Speculum Exam - Vagina: normal appearance of the vagina and normal vaginal discharge Bimanual Exa (more content not included)... Normal [facility] SCRN MAMM (CAD)W/DUARTE BILATo n 04-18-2025 SCRN MAMM (CAD)W/DUARTE BILAT [facility] [address] [place] [address] [id number] SCRN MAMM (CAD)W/DUARTE BILAT MR#: [id number] Acct: [id number] Name: GISELA ALMAGUER Rep #: [id number] : 1960 F 64 From: Blake lakhani MD PCP: Dr. Apolonia Anderson DO Status: REG CLI Study: SCRN MAMM (CAD)W/DUARTE BILAT Date of Exam: 04/05 01/28 Exam# [id number] Ordering Dr: Mirella Piedra DO EXAM: SCRN MAMM (CAD)W/DUARTE BILAT DATE: 04/18/2025 CLINICAL HISTORY: F, Age 64 y/o , SCREEN FOR BREAST CANCER TECHNIQUE: SCRN MAMM (CAD)W/DUARTE BILAT COMPARISON: Prior exam(s) dated April 12, 2024.. FINDINGS: TISSUE DENSITY: There are scattered areas of fibroglandular density. Bilateral Breast Mammographic Findings: No significant masses, calcifications or other abnormalities are identified. No suspicious masses, areas of developing architectural distortion, or suspicious calcifications. There has been no significant interval change. BI/SCRN MAMM (CAD)W/DUARTE BILAT IMPRESSION: Stable examination. OVERALL FINAL ASSESSMENT BI-RADS 1: NEGATIVE. RECOMMENDATION: Routine annual follow-up in 1 Year A letter with findings and recommendations will be mailed to the patient. Reading Location: [place] [address] CC: Dr. Mirella Piedra DO; Dr. 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 Studies are underway to measure the quantitative levels of specific SARS-CoV-2 antibodies following vaccination. Such studies will provide valuable insights into the correlation between protection from vaccination and antibody levels. Interpretation: Negative < 1.0 Positive > or = 1.0Method: [employer] IM SARS SEMI-QUANT IGG ABS * This test has not been reviewed by the FDA* Use of this test is limited to laboratories that are certified under Clinical Laboratory Improvement Amendments of 1988 (CLIA) to perform high-complexity testing.* Negative results do not preclude acute SARS-CoV-2 infection. If acute infection is suspected, direct testing for SARS-CoV-2 is necessary.* Results from antibody testing should not be used to diagnose or exclude acute SARS-CoV-2 infection.* Positive results may be due to past or present infection with gru-WPBY-[id number]-2 coronovirus strains, such as coronavirus HKU1, NL63, OC43, or 229E. PROGRESSon 11-08-2019 PROGRESS HNO ID: [id number] Author: Nehal Mckeon Service: ? Author Type: Browning Processor Type: Progress Notes Filed: 11/08/2019 10:06 AM Note Text: [facility] ELECTROPLATING [facility]ORER QUICKNOTE Provider Action/FYI: I spoke with Gisela and she states she got a new physician because she could never get in to see Dr. Isabel, it was always the nurse practitioner/pa. Dr. Isabel removed as pcp Patient identified by name and . Nehal Mckeon CMA [facility] PROGRESS HNO ID: [id number] Author: Nehal Mckeon Service: ? Author Type: Browning Processor Type: Progress Notes Filed: 11/08/2019 10:06 AM Note Text: [facility] ELECTROP[employer]ATING [facility]ORER QUICKNOTE Provider Action/FYI: 1st attempt - Left detailed message for patient to return call #[phone] Patient identified by name and . Nehal Mckeon CMA [facility] CNPTOUTREACHon 11-02-2019 CNPTOUTREACH Patient Outreach (INTMWS) GISELA ALMAGUER ([id number]) 1960 F Date Time Provider Department 11/02/19 NEHAL MCKEON) INTMWS During your visit today, we recorded the following information about you: Nehal Mckeon CMA 11/08/2019 10:06 AM Signed [facility] TEAMLET DOCUMENTATION Provider Action/FYI: PSR Action/FYI: Last patient activity 02/05/2017 Last PCP visit 02/21/2016 I will call patient to verify PCP/schedule re-establish care appointment (if patient agreeable). Health Maintenance Due: DTAP,TDAP,TD(1 - Tdap) due on 1973 HEPATITIS C SCREENING due on 2006 SHINGRIX VACCINE(1 of 2) due on 2012 MAMMOGRAM due on 02/05/2018 DIABETES SCREEN due on 02/22/2019 INFLUENZA(1) due on 06/06/2019 COLORECTAL CANCER SCREENING,SEE MODIFIER due on 08/31/2019 Teamlet has identified patient by name and date of . Team: Dr. Chalo Calvert ? Last Office Visit:Visit date not found ? Next Office Visit: Visit date not found ? Last BP/Labs: Blood Pressure: Last 3 Encounter BP Readings: Date: BP: 02/05/2017 90/60 07/16/2016 118/72 04/05/2016 112/74 Lipids: Cholesterol, Total (mg/dL) Date Value 02/23/2016 231 HDL Cholesterol (mg/dL) Date Value 02/23/2016 86 LDL Cholesterol (mg/dL) Date Value 02/23/2016 137 Triglyceride (mg/dL) Date Value 02/23/2016 38 HGB A1C: No results found for: HBA1C TSH: No results found for: TSH) Care Gap: not seen 3 + years Plan: ? Confirm PCP / Status - unknown ? Type of appointment needed: verify pcp/re-establish care ? Consultation Appointments: n/a Labs, HM and Immunization: Health Maintenance Due: DTAP,TDAP,TD(1 - Tdap) due on 1973 HEPATITIS C SCREENING due on 2006 SHINGRIX VACCINE(1 of 2) due on 2012 MAMMOGRAM due on 02/05/2018 DIABETES SCREEN due on 02/22/2019 INFLUENZA(1) due on 06/06/2019 COLORECTAL CANCER SCREENING,SEE MODIFIER due on 08/31/2019 ZARINA Sandoval CMA 11/08/2019 10:06 AM Signed [facility] FANTA Provider Action/FYI: 1st attempt - Left detailed message for patient to return call #[phone] Patient identified by name and . ZARINA Sandoval CMA 11/08/2019 10:06 AM Signed [facility] Provider Action/FYI: I spoke with Gisela and she states she got a new physician because she could never get in to see Dr. Isabel, it was always the nurse practitioner/pa. Dr. Isabel removed as pcp Patient identified by name and . Nehal Mckeon CMA Allergies As of Date: 11/02/2019 Noted Allergy Reaction DEMEROL (MEPERIDINE (PF)) 01/18/2008 SULFA (SULFONAMIDE ANTIBIOTICS) 01/11/2008 Date Reviewed: 02/05/2017 Reviewed by: Yesenia Anderson LPN - Fully Assessed Reason for Visit: PHMA/Care Gap Outreach [[id number]] Prescriptions as of 11/02/2019 Sig: COMPOUNDED PRESCRIPTION Allergy injections weekly CONJUGATED ESTROGENS 0.625 MG* Apply a dime size amount to t* CETIRIZINE 10 MG TABLET Take 1 tablet by mouth once d* FLUTICASONE PROPIONATE 50 MCG* Use 2 Sprays in each nostril * FLONASE NASAL Use in the nose. ALBUTEROL SULFATE HFA 90 MCG/* Inhale 2 Puffs as instructed * NORTRIPTYLINE 10 MG CAPSULE Take 1 capsule by mouth daily* Problem List As Of Date 11/02/2019 Noted Resolved Capsulitis [M77.9] 08/18/2009 Irritable bowel syndrome without diarrhea [K58.*02/21/2016 More... Encounter Status:Closed by NEHAL MCKEON CMA on 11/08/19 Normal [facility] PROGRESSon 11-02-2019 PROGRESS HNO ID: [id number] Author: Nehal Mckeon Service: ? Author Type: Browning Processor Type: Progress Notes Filed: 11/08/2019 10:06 AM Note Text: [facility] TEAMLET DOCUMENTATION Provider Action/FYI: PSR Action/FYI: Last patient activity 02/05/2017 Last PCP visit 02/21/2016 I will call patient to verify PCP/schedule re-establish care appointment (if patient agreeable). Health Maintenance Due: DTAP,TDAP,TD(1 - Tdap) due on 1973 HEPATITIS C SCREENING due on 2006 SHINGRIX VACCINE(1 of 2) due on 2012 MAMMOGRAM due on 02/05/2018 DIABETES SCREEN due on 02/22/2019 INFLUENZA(1) due on 06/06/2019 COLORECTAL CANCER SCREENING,SEE MODIFIER due on 08/31/2019 Teamlet has identified patient by name and date of . Team: Dr. Chalo Calvert ? Last Office Visit:Visit date not found ? Next Office Visit: Visit date not found ? Last BP/Labs: Blood Pressure: Last 3 Encounter BP Readings: Date: BP: 02/05/2017 90/60 07/16/2016 118/72 04/05/2016 112/74 Lipids: Cholesterol, Total (mg/dL) Date Value 02/23/2016 231 HDL Cholesterol (mg/dL) Date Value 02/23/2016 86 LDL Cholesterol (mg/dL) Date Value 02/23/2016 137 Triglyceride (mg/dL) Date Value 02/23/2016 38 HGB A1C: No results found for: HBA1C TSH: No results found for: TSH) Care Gap: not seen 3 + years Plan: ? Confirm PCP / Status - unknown ? Type of appointment needed: verify pcp/re-establish care ? Consultation Appointments: n/a Labs, HM and Immunization: Health Maintenance Due: DTAP,TDAP,TD(1 - Tdap) due on 1973 HEPATITIS C SCREENING due on 2006 SHINGRIX VACCINE(1 of 2) due on 2012 MAMMOGRAM due on 02/05/2018 DIABETES SCREEN due on 02/22/2019 INFLUENZA(1) due on 06/06/2019 COLORECTAL CANCER SCREENING,SEE MODIFIER due on 08/31/2019 Nehal Mckeon CMA Normal [facility] Office Visiton 08-11-2017 Documentation of current medications (procedure) Done Invalid Interpretation Code [facility] Work Phone: Fall risk assessment No Invalid Interpretation Code [facility] Work Phone: Tobacco use [facility] Never smoker Invalid Interpretation Code [facility] Work Phone: Vital Signs Date Time Vital Sign Value Performing Clinician Faci litaaron 04-18-2025 13:59-0400 Body height 160.[address] Apolonia Anderson DO Work Phone: [facility] 04-18-2025 13:59-0400 Body mass index (BMI) [Ratio] 22.5 kg/m2 Dr. Apolonia Anderson DO Work Phone: [facility] 04-18-2025 13:59-0400 Body weight 57.[address] Apolonia Anderson DO Work Phone: [facility] 04-18-2025 13:59-0400 Diastolic blood pressure 73 mm[Hg] Dr. Apolonia Anderson DO Work Phone: [facility] 04-18-2025 13:59-0400 Systolic blood pressure 117 mm[Hg] Dr. Apolonia Anderson DO Work Phone: [facility] 01-24-2022 13:51-0400 Body height 160.[address] Apolonia Anderson Work Phone: [facility] Work Phone: 01-24-2022 13:51-0400 Body mass index (BMI) [Ratio] 24.8 kg/m2 Dr. Apolonia Anderson Work Phone: [facility] Work Phone: 01-24-2022 13:51-0400 Body weight 63.[address] Apolonia Anderson Work Phone: [facility] Work Phone: 01-24-2022 13:51-0400 Diastolic blood pressure 86 mm[Hg] Dr. Apolonia Anderson Work Phone: [facility] Work Phone: 01-24-2022 13:51-0400 Systolic blood pressure 130 mm[Hg] Dr. Apolonia Anderson Work Phone: [facility] Work Phone: 08-11-2017 10:17-0500 BMI (Body Mass Index) 24.44 kg/m2 Bart KEARNS [facility] Work Phone: 08-11-2017 10:17-0500 Body Temperature 98.2 [degF] Bart KEARNS [facility] Work Phone: 08-11-2017 10:17-0500 BP Diastolic 72 mm[Hg] Bart KEARNS [facility] Work Phone: 08-11-2017 10:17-0500 BP Systolic 112 mm[Hg] Bart KEARNS [facility] Work Phone: 08-11-2017 10:17-0500 Height 160.02 cm Bartaaron KEARNS [facility] Work Phone: 08-11-2017 10:17-0500 Pulse (Heart Rate) 86 /min Bartaaron KEARNS [facility] Work Phone: 08-11-2017 10:17-0500 Respiratory Rate 13 /min Bart Brandon SOM [facility] Work Phone: 08-11-2017 10:17-0500 Weight 62.6 kg Bart Taylor SOM [facility] Work Phone: Encounters Encounter Date Encounter Type Care Provider Facility Start: 04-18-2025 End: 04-18-[address] Mirella Piedra DO [facility] Start: 04-18-2025 End: 04-18-[address] Mirella Piedra DO [facility] Work Phone: Start: 04-18-2025 End: 04-18-[address] Apolonia Anderson DO Work Phone: [facility] Start: 09-14-2022 End: 09-14-2022 ambulatory [facility] Work Phone: Start: 09-14-2022 End: 09-14-2022 Patient encounter procedure [facility] Start: 01-24-2022 End: 01-24-[address] Apolonia Anderson Work Phone: [facility] [place] Start: 10-15-[address] Apolonia steiner Work Phone: [facility] from [facility] Start: 10-15-2021 End: 10-15-[address] Apolonia Anderson Work Phone: [facility] Procedures Date Procedure Procedure Detail Performing Clinician Start: 04-18-2025 Screening mammography Vincenzo Anderson DO Work Phone: Start: 09-14-2022 Ultrasonography of abdomen Start: 01-24-2022 Screening mammography D r. Apolonia Anderson Work Phone: Plan of Treatment Date Care Activity Detail Author Start: 08-11-2017 End: 08-11-2017 Radiologic exam knee complete 4/more views X-Ray, Knee [facility] Work Phone: Start: 08-11-2017 End: 08-11-2017 Appointment Appointment [facility] Work Phone: Payers Date Payer Category Payer Unknown [id number] 2025 Self-pay [id number] 2025 Unknown [id number] 2014 Unknown [id number] Unknown [id number] Social History Date Type Detail Facility Start: 01-24-2022 End: 01-24-2022 Tobacco smoking status NHIS Unknown if ever smoked [facility] Work Phone: Start: 02-25-2021 Non-smoker [facility] Start: 1960 Sex Assigned At Female [facility] Start: 02-20-2023 Tobacco smoking stat us NHIS Never smoked tobacco (finding) [facility] Evaluation note Note Date & Type Note Facility Evaluation note No assessment information availa ble [facility] Work Phone: Evaluation note Note Date & Type Note Facility Evaluation note Diagnosis Onset Date Resolution Encounter for routine gynecological examination noneactive April 18, 2025 1:37pm [facility] Work Phone: Reason for referral (narrative) Note Date & Type Note Facility Reason for referral (narrative) No reason for referral information available [facility] Work Phone: Summary Purpose Family History No Family History Records Found Relationship Condition Age at Onset Recorded Date/T barbara grandmother Diabetes mellitus Unknown mother Osteoporosis Unknown Advance Directives No Advanced Directives Records Found Advance Directive Response Recorded Date/ Time Advance Directives No February 17 8 8:47am Living Will No February 25, 2021 4 :26am Power of Labor Specialist No February 25, 2021 4:26am Advance Directive Response Recorded Date/ Time Advance Directives No February 17 8 7:47am Living Will No February 25, 2021 3 :26am Power of Labor Specialist No February 25, 2021 3:26am Advance Directive Response Recorded Date/ Time Advance Directives No February 17 8 8:47am Chief Complaint and Reason for Visit Chief Complaint AB TEST HRA LABWORK COVID AB TESTING SCREENING Annual ([employer]) Chief Complaint GALLBLADDER POLYP Chief Complaint Admit Date screen for breast cancer April 18, 2025 12:44pm Annual ([employer]) April 18, 2025 1:37 pm Reason for Visit Admit Date Encounter for routine gynecological exam ination April 18, 2025 1:37pm Additional Source Comments INFORMATION SOURCE (unrecogn ized section and content) DATE CREATED AUTHOR 11/08/2019 [facility] DATE CREATED AUTHOR AUTHOR'S ORGANIZ ATION 04/18/2025 [facility] Goals (unrecognized section and content) Goals may be documented in a n alternate sectionGoals may be documented in an alternate sectionGoals may be documented in an alternate section Care Teams (unrecognized sec tion and content) Team Status: Active Member Role/Relationship Status Dates Dr. Apolonia Anderson DO Primary Care Provider Active Team Status: Active Member Role/Relationship Status Dates Dr. Apolonia Anderson DO Primary Care Provider Active Start: April 18, 2025 Dr. Mirella Piedra DO Attending Provider Activ e Start: April 18, 2025 Dr. Mirella Piedra DO Referring Provider Activ e Start: April 18, 2025 Team Status: Inactive Member Role/Relationship Status Dates Dr. Apolonia Anderson DO Primary Care Provider Active Start: April 18, 2025 End: April 18, 2025 Dr. Apolonia Anderson DO Referring Provider Active St art: April 18, 2025 End: April 18, 2025 Dr. Mirella Piedra DO Attending Provider Activ e Start: April 18, 2025 End: April 18, 2025 FOR RECORDS PERTAINING TO PATIENTS WHO ARE OR HAVE BEEN ENROLLED IN A CHEMICAL DEPENDENCY/SUBSTANCEABUSE PROGRAM, SOME INFORMATION MAY BE OMITTED. This clinical summary was aggregated from multiple sources. Caution should be exercised in using it in the provision of clinical care. This summary normalizes information from multiple sources, and as a consequence, information in this document may materially change the coding, format and clinical context of patient data. In addition, data may be omitted in some cases. CLINICAL DECISIONS SHOULD BE BASED ON THE PRIMARY CLINICAL RECORDS. [employer] provides no warranty or guarantee of the accuracy or completeness of information in this document.
== END | disposition home or self-care (01) ==
LOC: OPBI 12:47
PROVIDERS: PCP Family Medicine; Referring Provider Obstetrics & Gynecology; Visit Provider Obstetrics & Gynecology
DX: Z12.31 Encounter for screening mammogram for malignant neoplasm of breast (principal)
CPT/HCPCS: 77063; 77067